=== PATIENT | male | born 1930 | race Caucasian/White ===

== ENCOUNTER 2017-10-03 00:54 | Inpatient (IN) | payer MEDICARE, OTHER ==
[2017-10-03] MEDS: SOD CHLORIDE 0.9% 500 ML IV (01:30)
[2017-10-03 01:32] LABS: ADD MAN DIFF? NO
[2017-10-03 01:36] LABS: WHITE BLOOD COUNT 7.7 10^3/ul (4.8-10.8)
[2017-10-03 01:36] LABS: BASOPHILS % 0.3 % (0.0-2.0); EOSINOPHILS % 0.3 % (0.0-7.0); HEMATOCRIT 33.7 % (42.0-52.0); HEMOGLOBIN 10.4 g/dl (14.0-18.0); LYMPHOCYTES # 1.4 10^3/ul (0.8-2.9); MEAN CORPUSCULAR HEMOGLOBIN 30.9 pg (29.0-33.0); MEAN CORPUSCULAR HGB CONC 30.9 g/dl (32.0-37.0); MEAN PLATELET VOLUME 10.8 fl (7.4-10.4); MONOCYTE # 0.6 10^3/ul (0.3-0.9); MONOCYTES % 8.1 % (0.0-11.0); NEUTROPHIL # 5.6 10^3/ul (1.6-7.5); NEUTROPHILS % 72.5 % (39.0-77.0); NUCLEATED RED BLOOD CELLS% 0.3 /100WBC (0.0-0.0); PLATELET COUNT 188 10^3/UL (140-415); RED BLOOD COUNT 3.37 10^6/ul (4.70-6.10); RED CELL DISTRIBUTION WIDTH 15.9 % (11.5-14.5)
[2017-10-03 01:56] LABS: INR 1.52; PARTIAL THROMBOPLASTIN TIME 29.1 Sec (25.0-35.0); PROTIME 18.6 Sec (11.9-14.9); PT RATIO 1.5
[2017-10-03 02:00] LABS: ALBUMIN 3.9 g/dl (3.3-4.9); ALBUMIN/GLOBULIN RATIO 1.18; ALKALINE PHOSPHATASE 151 IU/L (42-121); ANION GAP 26 (8-16); BILIRUBIN,INDIRECT 1.7 mg/dl (0-1.1); BILIRUBIN,TOTAL 1.7 mg/dl (0.2-1.3); BLOOD UREA NITROGEN 41 mg/dl (7-20); CALCIUM 9.5 mg/dl (8.4-10.2); CARBON DIOXIDE 16 mmol/L (21-31); CHLORIDE 108 mmol/L (97-110); CREATININE 2.18 mg/dl (0.61-1.24); GLUCOSE 81 mg/dl (70-220); LIPASE 120 U/L (23-300); POTASSIUM 5.6 mmol/L (3.5-5.1); SODIUM 144 mmol/L (135-144); TOTAL PROTEIN 7.2 g/dl (6.1-8.1)
[2017-10-03 02:11] LABS: TROPONIN-I 0.061 ng/ml (0.00-0.12)
[2017-10-03 02:16] LABS: ALANINE AMINOTRANSFERASE 1164 IU/L (13-69); ASPARTATE AMINO TRANSFERASE 1357 IU/L (15-46)
[2017-10-03 02:52] LABS: B-TYPE NATRIURETIC PEPTIDE 29700 PG/ML (0-450)
[2017-10-03] MEDS ORDERED: DEXTROSE 50% 50 ML SYRINGE IV (03:00)
[2017-10-03] MEDS: DEXTROSE 50% 50 ML SYRINGE IV (03:27)
[2017-10-03] MEDS: FUROSEMIDE 40 MG INJ IV (03:28)
[2017-10-03] MEDS: INSULIN REGULAR, HUMAN 100 UNIT/1 ML 3ML VIAL IVP (03:29)
[2017-10-03] MEDS ORDERED: NACL 0.9% 3 ML SYG IV (07:30)
[2017-10-03] MEDS ORDERED: ACETAMINOPHEN 325 MG TAB PO (07:30)
[2017-10-03] MEDS ORDERED: DOCUSATE SODIUM 100 MG CAP PO (07:30)
[2017-10-03] MEDS ORDERED: BISACODYL (EC) 5 MG TAB PO (07:30)
[2017-10-03] MEDS ORDERED: ONDANSETRON 4 MG INJ IV (07:30)
[2017-10-03] MEDS ORDERED: NITROGLYCERIN (SL) 0.4 MG TAB SL (07:30)
[2017-10-03] MEDS ORDERED: morphine 2 MG INJ (07:41)
[2017-10-03 08:21] LABS: ADD MAN DIFF? NO; HAAIG REFLEX REFLEX FILED
[2017-10-03 08:25] LABS: BASOPHILS % 0.1 % (0.0-2.0); EOSINOPHILS % 0.1 % (0.0-7.0); HEMATOCRIT 33.3 % (42.0-52.0); HEMOGLOBIN 10.6 g/dl (14.0-18.0); LYMPHOCYTES # 2.4 10^3/ul (0.8-2.9); LYMPHOCYTES % 16.3 % (15.0-51.0); MEAN CORPUSCULAR HEMOGLOBIN 31.5 pg (29.0-33.0); MEAN CORPUSCULAR HGB CONC 31.8 g/dl (32.0-37.0); MEAN CORPUSCULAR VOLUME 99.1 fl (82.0-101.0); MONOCYTE # 1.5 10^3/ul (0.3-0.9); MONOCYTES % 10.1 % (0.0-11.0); NEUTROPHIL # 10.6 10^3/ul (1.6-7.5); NEUTROPHILS % 72.8 % (39.0-77.0); PLATELET COUNT 182 10^3/UL (140-415); RED BLOOD COUNT 3.36 10^6/ul (4.70-6.10); RED CELL DISTRIBUTION WIDTH 15.9 % (11.5-14.5)
[2017-10-03 08:25] LABS: WHITE BLOOD COUNT 14.5 10^3/ul (4.8-10.8)
[2017-10-03 08:38] LABS: HEMOGLOBIN A1C 4.8 % (0-5.9)
[2017-10-03] MEDS: morphine 2 MG INJ IV ×2 (08:39→22:11)
[2017-10-03 08:44] LABS: CREATINE KINASE 89 IU/L (23-200)
[2017-10-03 08:48] LABS: ALBUMIN/GLOBULIN RATIO 1.25; ALKALINE PHOSPHATASE 152 IU/L (42-121); ANION GAP 24 (8-16); BILIRUBIN,INDIRECT 1.5 mg/dl (0-1.1); BILIRUBIN,TOTAL 1.5 mg/dl (0.2-1.3); BLOOD UREA NITROGEN 42 mg/dl (7-20); CALCIUM 9.3 mg/dl (8.4-10.2); CARBON DIOXIDE 17 mmol/L (21-31); CHLORIDE 111 mmol/L (97-110); CHOL/HDL RATIO 3.4 RATIO; CHOLESTEROL 121 mg/dl (100-200); CREATININE 2.41 mg/dl (0.61-1.24); GLUCOSE 84 mg/dl (70-220); HDL CHOLESTEROL 35 mg/dl (31-75); LDL CHOLESTEROL,CALCULATED 71 mg/dl; MAGNESIUM 2.2 mg/dl (1.7-2.5); POTASSIUM 4.6 mmol/L (3.5-5.1); SODIUM 147 mmol/L (135-144); TOTAL PROTEIN 7.2 g/dl (6.1-8.1); TRIGLYCERIDES 76 mg/dl (0-149)
[2017-10-03 08:56] LABS: ALANINE AMINOTRANSFERASE 2517 IU/L (13-69)
[2017-10-03 08:58] LABS: CK INDEX 2.6
[2017-10-03 08:59] LABS: CK-MB 2.28 ng/ml (0.0-2.4)
[2017-10-03] MEDS ORDERED: ALBUTEROL HFA 8 GM INHALER INH (09:00)
[2017-10-03] MEDS ORDERED: NON-FORMULARY/PATIENT OWN MED (Linaclotide (Linzess) 145 MCG) PO (09:00)
[2017-10-03] MEDS ORDERED: [UNRECOGNIZED DRUG - OTHER] (09:00)
[2017-10-03] MEDS: PREDNISOLONE ACET 1% 5 ML OPH BOTH EYES ×3 (09:00→21:42)
[2017-10-03 09:01] LABS: TROPONIN-I 0.156 ng/ml (0.00-0.12)
[2017-10-03] MEDS: CIPROFLOXACIN 0.3% 3.5 GM OPH OINT BOTH EYES ×3 (09:11→21:42)
[2017-10-03] MEDS: ALPRAZOLAM 0.5 MG TAB PO ×2 (09:15→21:41)
[2017-10-03] MEDS: DULOXETINE 30 MG CAP DR PO (09:15)
[2017-10-03] MEDS: ASPIRIN 81 MG TAB PO (09:15)
[2017-10-03] MEDS: FERROUS SULFATE (EC) 325 MG TAB PO (09:15)
[2017-10-03] MEDS: CARBIDOPA/LEVODOPA 50-200 (CR) TAB PO ×2 (09:16→21:41)
[2017-10-03] MEDS: METOPROLOL (XL) 25 MG TAB PO (09:16)
[2017-10-03 09:19] LABS: HEPATITIS B SURFACE ANTIGEN NEGATIVE (NEGATIVE)
[2017-10-03 09:36] LABS: HEPATITIS B SURFACE ANTIBODY NEGATIVE (NEGATIVE)
[2017-10-03 09:37] LABS: HEPATITIS B CORE ANTIBODY NEGATIVE (NEGATIVE); HEPATITIS C VIRAL ANTIBODY NEGATIVE (NEGATIVE)
[2017-10-03 09:55] LABS: ASPARTATE AMINO TRANSFERASE 3106 IU/L (15-46)
[2017-10-03 14:03] LABS: CREATINE KINASE 93 IU/L (23-200)
[2017-10-03 14:16] LABS: CK INDEX 2.6
[2017-10-03 14:20] LABS: CK-MB 2.45 ng/ml (0.0-2.4)
[2017-10-03 14:22] LABS: TROPONIN-I 0.194 ng/ml (0.00-0.12)
[2017-10-03 19:08] LABS: TROPONIN-I 0.198 ng/ml (0.00-0.12)
[2017-10-03] MEDS: INFLUENZA VIRUS VACCINE 0.5 ML SYG IM* (19:08)
[2017-10-03] MEDS ORDERED: PIPER-TAZO 2.25 GM (PMX) 50 ML IVPB (20:00)
[2017-10-03 20:10] LABS: ACETAMINOPHEN < 10.0 ug/ml (10.0-30.0)
[2017-10-04] MEDS: PIPER-TAZO 2.25 GM (PMX) 50 ML IVPB ×5 (00:22→23:25)
[2017-10-04] MEDS: LEVOTHYROXINE 25 MCG TAB PO (06:20)
[2017-10-04] MEDS: CARBIDOPA/LEVODOPA 50-200 (CR) TAB PO ×3 (08:04→21:00)
[2017-10-04] MEDS: DULOXETINE 30 MG CAP DR PO ×2 (08:04→09:00)
[2017-10-04] MEDS: ASPIRIN 81 MG TAB PO ×2 (08:04→09:00)
[2017-10-04 08:06] LABS: ADD MAN DIFF? NO
[2017-10-04] MEDS: ENOXAPARIN 60 MG/0.6 ML SYG SC (08:06)
[2017-10-04 08:09] LABS: BASOPHILS % 0.1 % (0.0-2.0); HEMATOCRIT 33.4 % (42.0-52.0); HEMOGLOBIN 10.6 g/dl (14.0-18.0); LYMPHOCYTES # 0.8 10^3/ul (0.8-2.9); LYMPHOCYTES % 3.7 % (15.0-51.0); MEAN CORPUSCULAR HEMOGLOBIN 31.1 pg (29.0-33.0); MEAN CORPUSCULAR HGB CONC 31.7 g/dl (32.0-37.0); MEAN CORPUSCULAR VOLUME 97.9 fl (82.0-101.0); MEAN PLATELET VOLUME 11.5 fl (7.4-10.4); MONOCYTE # 1.2 10^3/ul (0.3-0.9); MONOCYTES % 5.8 % (0.0-11.0); NEUTROPHIL # 18.3 10^3/ul (1.6-7.5); NEUTROPHILS % 89.7 % (39.0-77.0); NUCLEATED RED BLOOD CELLS # 0.1 10^3/ul (0.0-0.0); NUCLEATED RED BLOOD CELLS% 0.4 /100WBC (0.0-0.0); PLATELET COUNT 137 10^3/UL (140-415); RED BLOOD COUNT 3.41 10^6/ul (4.70-6.10); RED CELL DISTRIBUTION WIDTH 15.9 % (11.5-14.5)
[2017-10-04 08:09] LABS: WHITE BLOOD COUNT 20.4 10^3/ul (4.8-10.8)
[2017-10-04] MEDS: METOPROLOL (XL) 25 MG TAB PO ×2 (08:09→09:00)
[2017-10-04] MEDS: PREDNISOLONE ACET 1% 5 ML OPH BOTH EYES ×3 (08:10→21:02)
[2017-10-04] MEDS: CIPROFLOXACIN 0.3% 3.5 GM OPH OINT BOTH EYES ×3 (08:10→21:02)
[2017-10-04] MEDS: FUROSEMIDE 40 MG INJ IV ×2 (08:10→18:25)
[2017-10-04 08:22] LABS: ALBUMIN 3.7 g/dl (3.3-4.9); ALBUMIN/GLOBULIN RATIO 1.23; ALKALINE PHOSPHATASE 175 IU/L (42-121); ANION GAP 24 (8-16); BILIRUBIN,INDIRECT 1.5 mg/dl (0-1.1); BILIRUBIN,TOTAL 2.5 mg/dl (0.2-1.3); BLOOD UREA NITROGEN 57 mg/dl (7-20); CALCIUM 9.1 mg/dl (8.4-10.2); CARBON DIOXIDE 16 mmol/L (21-31); CHLORIDE 111 mmol/L (97-110); CREATINE KINASE 127 IU/L (23-200); CREATININE 3.04 mg/dl (0.61-1.24); GLUCOSE 77 mg/dl (70-220); POTASSIUM 5.1 mmol/L (3.5-5.1); SODIUM 146 mmol/L (135-144); TOTAL PROTEIN 6.7 g/dl (6.1-8.1)
[2017-10-04 08:34] LABS: CK INDEX 2.5
[2017-10-04 08:36] LABS: ALANINE AMINOTRANSFERASE 1819 IU/L (13-69)
[2017-10-04 08:37] LABS: CK-MB 3.12 ng/ml (0.0-2.4); TROPONIN-I 0.306 ng/ml (0.00-0.12)
[2017-10-04 08:57] LABS: CHOL/HDL RATIO 2.7 RATIO; HDL CHOLESTEROL 38 mg/dl (31-75); LDL CHOLESTEROL,CALCULATED 52 mg/dl; TRIGLYCERIDES 81 mg/dl (0-149)
[2017-10-04 08:57] LABS: CHOLESTEROL 106 mg/dl (100-200)
[2017-10-04 09:02] LABS: ASPARTATE AMINO TRANSFERASE 4388 IU/L (15-46)
[2017-10-04] MEDS: [UNRECOGNIZED DRUG - OTHER] XX ×2 (10:49→18:20)
[2017-10-04] MEDS: [UNRECOGNIZED DRUG - REMARK] XX ×2 (10:49→18:20)
[2017-10-04] MEDS: BROMFENAC SODIUM 1.7 ML OPH DROP BOTH EYES ×3 (11:00→21:04)
[2017-10-04 12:22] LABS: CREATINE KINASE 129 IU/L (23-200)
[2017-10-04 12:33] LABS: CK INDEX 2.5
[2017-10-04 12:37] LABS: CK-MB 3.24 ng/ml (0.0-2.4); TROPONIN-I 0.272 ng/ml (0.00-0.12)
[2017-10-04] MEDS ORDERED: VANCOMYCIN IV PER PHARMACY XX (14:00)
[2017-10-04] MEDS ORDERED: METOPROLOL 5 MG INJ (14:50)
[2017-10-04] MEDS: LORAZEPAM 2 MG INJ IV (15:45)
[2017-10-04] MEDS: VANCOMYCIN 1.5 GM in SOD CHLORIDE 0.9% 250 ML IVPB (17:00)
[2017-10-04 18:06] LABS: INR 2.56; PT RATIO 2.2
[2017-10-04 18:54] LABS: PROTIME 28.2 Sec (11.9-14.9)
[2017-10-04 22:39] LABS: ADD UMIC YES; UR ASCORBIC ACID NEGATIVE (NEGATIVE); UR BACTERIA FEW /HPF (NONE SEEN); UR BILIRUBIN (Dip) NEGATIVE (NEGATIVE); UR BLOOD (Dip) 1+ mg/dL (NEGATIVE); UR CLARITY SLIGHTLY CLOUDY (CLEAR); UR COLOR YELLOW (YELLOW); UR GLUCOSE (Dip) NEGATIVE (NEGATIVE); UR KETONES (Dip) NEGATIVE (NEGATIVE); UR LEUKOCYTE ESTERASE (Dip) NEGATIVE Leu/ul (NEGATIVE); UR NITRITE (Dip) NEGATIVE (NEGATIVE); UR RBC 2 /HPF (0-5); UR TOTAL PROTEIN (Dip) NEGATIVE (NEGATIVE); UR UROBILINOGEN (Dip) NEGATIVE (NEGATIVE); UR WBC 2 /HPF (0-5)
[2017-10-04 22:44] LABS: SODIUM,URINE RANDOM 99 mmol/L (30-90)
[2017-10-04 22:46] LABS: CREATININE,URINE RANDOM 48.37 mg/dl (20-370); PROTEIN/CREAT RATIO 0.53 RATIO
[2017-10-05] MEDS: [UNRECOGNIZED DRUG - REMARK] XX ×3 (03:00→19:00)
[2017-10-05] MEDS: [UNRECOGNIZED DRUG - OTHER] XX ×3 (03:00→19:00)
[2017-10-05] MEDS: PIPER-TAZO 2.25 GM (PMX) 50 ML IVPB ×5 (05:00→21:31)
[2017-10-05] MEDS: FUROSEMIDE 40 MG INJ IV (05:01)
[2017-10-05] MEDS: LEVOTHYROXINE 25 MCG TAB PO (06:15)
[2017-10-05] MEDS: PREDNISOLONE ACET 1% 5 ML OPH BOTH EYES ×3 (09:32→21:37)
[2017-10-05] MEDS: CIPROFLOXACIN 0.3% 3.5 GM OPH OINT BOTH EYES ×3 (09:32→21:37)
[2017-10-05] MEDS: BROMFENAC SODIUM 1.7 ML OPH DROP BOTH EYES ×3 (09:33→21:35)
[2017-10-05] MEDS: METOPROLOL (XL) 25 MG TAB PO ×2 (09:34→21:00)
[2017-10-05] MEDS: CARBIDOPA/LEVODOPA 50-200 (CR) TAB PO ×2 (09:34→21:37)
[2017-10-05] MEDS: ASPIRIN 81 MG TAB PO (09:35)
[2017-10-05] MEDS: DULOXETINE 30 MG CAP DR PO (09:35)
[2017-10-05 10:59] LABS: ADD MAN DIFF? NO
[2017-10-05 11:03] LABS: BASOPHILS % 0.2 % (0.0-2.0); EOSINOPHILS % 0.1 % (0.0-7.0); HEMATOCRIT 35.1 % (42.0-52.0); LYMPHOCYTES # 1.5 10^3/ul (0.8-2.9); LYMPHOCYTES % 9.2 % (15.0-51.0); MEAN CORPUSCULAR HEMOGLOBIN 31.2 pg (29.0-33.0); MEAN CORPUSCULAR HGB CONC 31.3 g/dl (32.0-37.0); MEAN CORPUSCULAR VOLUME 99.4 fl (82.0-101.0); MEAN PLATELET VOLUME 11.6 fl (7.4-10.4); MONOCYTE # 1.3 10^3/ul (0.3-0.9); MONOCYTES % 8.2 % (0.0-11.0); NEUTROPHIL # 12.9 10^3/ul (1.6-7.5); NEUTROPHILS % 81.3 % (39.0-77.0); NUCLEATED RED BLOOD CELLS # 0.3 10^3/ul (0.0-0.0); NUCLEATED RED BLOOD CELLS% 2.2 /100WBC (0.0-0.0); PLATELET COUNT 137 10^3/UL (140-415); RED BLOOD COUNT 3.53 10^6/ul (4.70-6.10); RED CELL DISTRIBUTION WIDTH 16.4 % (11.5-14.5)
[2017-10-05 11:03] LABS: WHITE BLOOD COUNT 15.8 10^3/ul (4.8-10.8)
[2017-10-05 11:25] LABS: ALBUMIN 3.9 g/dl (3.3-4.9); ALBUMIN/GLOBULIN RATIO 1.21; ALKALINE PHOSPHATASE 166 IU/L (42-121); ANION GAP 29 (8-16); BILIRUBIN,INDIRECT 1.8 mg/dl (0-1.1); BILIRUBIN,TOTAL 2.6 mg/dl (0.2-1.3); BLOOD UREA NITROGEN 69 mg/dl (7-20); CALCIUM 9.4 mg/dl (8.4-10.2); CARBON DIOXIDE 14 mmol/L (21-31); CHLORIDE 111 mmol/L (97-110); CREATININE 3.46 mg/dl (0.61-1.24); GLUCOSE 78 mg/dl (70-220); POTASSIUM 4.7 mmol/L (3.5-5.1); SODIUM 149 mmol/L (135-144); TOTAL PROTEIN 7.1 g/dl (6.1-8.1)
[2017-10-05 11:33] LABS: URIC ACID 17.6 mg/dl (3.1-7.9)
[2017-10-05 11:36] LABS: LACTIC ACID 7.5 mmol/L (0.5-2.0)
[2017-10-05 11:36] LABS: ALANINE AMINOTRANSFERASE 2667 IU/L (13-69)
[2017-10-05 11:53] LABS: ASPARTATE AMINO TRANSFERASE 2141 IU/L (15-46)
[2017-10-05 14:22] LABS: INR 2.89; PROTIME 31.1 Sec (11.9-14.9); PT RATIO 2.4
[2017-10-05] MEDS: SOD CHLORIDE 0.45% 1,000 ML IV (17:24)
[2017-10-05 20:11] LABS: LACTIC ACID 8.3 mmol/L (0.5-2.0)
[2017-10-05] MEDS: SOD CHLORIDE 0.9% 250 ML IV (21:28)
[2017-10-05] MEDS: AMIODARONE 200 MG TAB PO (21:34)
[2017-10-05] MEDS: ALPRAZOLAM 0.5 MG TAB PO (21:37)
[2017-10-06] MEDS: DIGOXIN 500 MCG INJ IV (00:18)
[2017-10-06] MEDS: HALOPERIDOL 5 MG INJ IM (00:19)
[2017-10-06] MEDS ORDERED: HALOPERIDOL 5 MG INJ IM (00:30)
[2017-10-06] MEDS: LEVALBUTEROL (NEB) 0.63 MG/3 ML AMP HHN ×2 (01:27→20:12)
[2017-10-06] MEDS: IPRATROPIUM (NEB) 0.5 MG/2.5 ML AMP HHN ×2 (01:27→20:12)
[2017-10-06] MEDS: SOD CHLORIDE 0.45% 1,000 ML IV ×3 (02:25→23:33)
[2017-10-06 02:37] LABS: LACTIC ACID 9.9 mmol/L (0.5-2.0)
[2017-10-06] MEDS: NA BICARBONATE 8.4% 50 ML SYG IV (03:28)
[2017-10-06] MEDS: AMIODARONE 200 MG TAB PO ×2 (06:00→14:00)
[2017-10-06] MEDS: PIPER-TAZO 2.25 GM (PMX) 50 ML IVPB ×3 (06:15→20:59)
[2017-10-06 06:38] LABS: ADD MAN DIFF? NO
[2017-10-06 06:43] LABS: WHITE BLOOD COUNT 13.5 10^3/ul (4.8-10.8)
[2017-10-06 06:43] LABS: BASOPHILS % 0.2 % (0.0-2.0); HEMATOCRIT 35.1 % (42.0-52.0); HEMOGLOBIN 11.3 g/dl (14.0-18.0); LYMPHOCYTES # 1.5 10^3/ul (0.8-2.9); MEAN CORPUSCULAR HEMOGLOBIN 31.7 pg (29.0-33.0); MEAN CORPUSCULAR HGB CONC 32.2 g/dl (32.0-37.0); MEAN CORPUSCULAR VOLUME 98.6 fl (82.0-101.0); MEAN PLATELET VOLUME 11.9 fl (7.4-10.4); MONOCYTE # 1.4 10^3/ul (0.3-0.9); MONOCYTES % 10.1 % (0.0-11.0); NEUTROPHIL # 10.5 10^3/ul (1.6-7.5); NUCLEATED RED BLOOD CELLS # 0.2 10^3/ul (0.0-0.0); NUCLEATED RED BLOOD CELLS% 1.4 /100WBC (0.0-0.0); PLATELET COUNT 137 10^3/UL (140-415); POSITIVE DIFF @See below; RED BLOOD COUNT 3.56 10^6/ul (4.70-6.10); RED CELL DISTRIBUTION WIDTH 17.2 % (11.5-14.5)
[2017-10-06 07:06] LABS: LACTIC ACID 7.6 mmol/L (0.5-2.0)
[2017-10-06 07:24] LABS: VANCOMYCIN,RANDOM 8.9 ug/ml
[2017-10-06 07:46] LABS: ALANINE AMINOTRANSFERASE 878 IU/L (13-69); ALBUMIN 3.8 g/dl (3.3-4.9); ALBUMIN/GLOBULIN RATIO 1.35; ALKALINE PHOSPHATASE 142 IU/L (42-121); ANION GAP 28 (8-16); BILIRUBIN,INDIRECT 2.1 mg/dl (0-1.1); BILIRUBIN,TOTAL 3.2 mg/dl (0.2-1.3); BLOOD UREA NITROGEN 81 mg/dl (7-20); CALCIUM 8.9 mg/dl (8.4-10.2); CARBON DIOXIDE 19 mmol/L (21-31); CHLORIDE 112 mmol/L (97-110); CREATININE 3.24 mg/dl (0.61-1.24); GLUCOSE 88 mg/dl (70-220); POTASSIUM 4.4 mmol/L (3.5-5.1); SODIUM 155 mmol/L (135-144); TOTAL PROTEIN 6.6 g/dl (6.1-8.1)
[2017-10-06 07:47] LABS: MAGNESIUM 2.1 mg/dl (1.7-2.5); PHOSPHORUS 5.7 mg/dl (2.5-4.9)
[2017-10-06] MEDS: [UNRECOGNIZED DRUG - REMARK] XX ×3 (09:29→19:00)
[2017-10-06] MEDS: [UNRECOGNIZED DRUG - OTHER] XX ×3 (09:30→19:00)
[2017-10-06] MEDS: CARBIDOPA/LEVODOPA 50-200 (CR) TAB PO ×2 (09:33→20:59)
[2017-10-06] MEDS: METOPROLOL (XL) 25 MG TAB PO ×2 (09:33→20:59)
[2017-10-06] MEDS: DULOXETINE 30 MG CAP DR PO (09:33)
[2017-10-06] MEDS: ASPIRIN 81 MG TAB PO (09:33)
[2017-10-06] MEDS: ALLOPURINOL 100 MG TAB PO ×2 (09:33→20:59)
[2017-10-06] MEDS: BROMFENAC SODIUM 1.7 ML OPH DROP BOTH EYES ×3 (09:34→20:57)
[2017-10-06] MEDS: CIPROFLOXACIN 0.3% 3.5 GM OPH OINT BOTH EYES ×3 (09:34→21:00)
[2017-10-06] MEDS: PREDNISOLONE ACET 1% 5 ML OPH BOTH EYES ×3 (09:34→20:56)
[2017-10-06] MEDS: LEVOTHYROXINE 25 MCG TAB PO (09:38)
[2017-10-06 09:55] LABS: LACTIC ACID 8.3 mmol/L (0.5-2.0)
[2017-10-06 09:58] LABS: ASPARTATE AMINO TRANSFERASE 1373 IU/L (15-46)
[2017-10-06] MEDS: VANCOMYCIN 750 MG in DEXTROSE 5% 150 ML IVPB (12:23)
[2017-10-06 13:38] LABS: ANA SCREEN NEGATIVE (NEGATIVE)
[2017-10-06 16:31] LABS: MITOCHONDRIAL TB NEGATIVE (NEGATIVE); SMOOTH MUSCLE AB SCREEN NEGATIVE (NEGATIVE)
[2017-10-06] MEDS: PHYTONADIONE 10 MG/ML INJ SC (17:36)
[2017-10-06] MEDS: LACTULOSE ENEMA 1,000 ML BTL PR ×2 (18:27→23:29)
[2017-10-06] MEDS: ALPRAZOLAM 0.5 MG TAB PO (21:30)
[2017-10-07] MEDS: LEVALBUTEROL (NEB) 0.63 MG/3 ML AMP HHN ×6 (02:22→20:59)
[2017-10-07] MEDS: IPRATROPIUM (NEB) 0.5 MG/2.5 ML AMP HHN ×6 (02:23→20:59)
[2017-10-07] MEDS: [UNRECOGNIZED DRUG - REMARK] XX ×3 (03:00→18:02)
[2017-10-07] MEDS: LACTULOSE ENEMA 1,000 ML BTL PR ×3 (05:53→18:11)
[2017-10-07] MEDS: PIPER-TAZO 2.25 GM (PMX) 50 ML IVPB ×3 (05:54→20:50)
[2017-10-07] MEDS: LEVOTHYROXINE 25 MCG TAB PO ×2 (07:00→08:54)
[2017-10-07] MEDS: [UNRECOGNIZED DRUG - OTHER] XX ×3 (07:51→18:02)
[2017-10-07 08:11] LABS: ADD MAN DIFF? NO
[2017-10-07 08:27] LABS: BASOPHILS % 0.2 % (0.0-2.0); HEMATOCRIT 32.6 % (42.0-52.0); HEMOGLOBIN 10.4 g/dl (14.0-18.0); LYMPHOCYTES # 0.8 10^3/ul (0.8-2.9); MEAN CORPUSCULAR HEMOGLOBIN 31.7 pg (29.0-33.0); MEAN CORPUSCULAR HGB CONC 31.9 g/dl (32.0-37.0); MEAN CORPUSCULAR VOLUME 99.4 fl (82.0-101.0); MEAN PLATELET VOLUME 11.4 fl (7.4-10.4); MONOCYTE # 0.9 10^3/ul (0.3-0.9); MONOCYTES % 9.3 % (0.0-11.0); NEUTROPHIL # 7.7 10^3/ul (1.6-7.5); NEUTROPHILS % 80.1 % (39.0-77.0); NUCLEATED RED BLOOD CELLS # 0.4 10^3/ul (0.0-0.0); NUCLEATED RED BLOOD CELLS% 3.6 /100WBC (0.0-0.0); PLATELET COUNT 122 10^3/UL (140-415); RED BLOOD COUNT 3.28 10^6/ul (4.70-6.10); RED CELL DISTRIBUTION WIDTH 18.3 % (11.5-14.5)
[2017-10-07 08:27] LABS: WHITE BLOOD COUNT 9.6 10^3/ul (4.8-10.8)
[2017-10-07 08:43] LABS: ALANINE AMINOTRANSFERASE 894 IU/L (13-69); ALBUMIN 3.8 g/dl (3.3-4.9); ALKALINE PHOSPHATASE 124 IU/L (42-121); ASPARTATE AMINO TRANSFERASE 741 IU/L (15-46); BILIRUBIN,INDIRECT 2.5 mg/dl (0-1.1); TOTAL PROTEIN 6.3 g/dl (6.1-8.1)
[2017-10-07 08:45] LABS: INR 2.87; PROTIME 30.9 Sec (11.9-14.9); PT RATIO 2.4
[2017-10-07 08:51] LABS: ALANINE AMINOTRANSFERASE 924 IU/L (13-69); ALBUMIN 3.8 g/dl (3.3-4.9); ALBUMIN/GLOBULIN RATIO 1.46; ALKALINE PHOSPHATASE 129 IU/L (42-121); ANION GAP 30 (8-16); ASPARTATE AMINO TRANSFERASE 740 IU/L (15-46); BILIRUBIN,INDIRECT 2.5 mg/dl (0-1.1); BILIRUBIN,TOTAL 3.9 mg/dl (0.2-1.3); BLOOD UREA NITROGEN 89 mg/dl (7-20); CALCIUM 8.8 mg/dl (8.4-10.2); CARBON DIOXIDE 17 mmol/L (21-31); CHLORIDE 116 mmol/L (97-110); CREATININE 3.38 mg/dl (0.61-1.24); GLUCOSE 103 mg/dl (70-220); POTASSIUM 4.2 mmol/L (3.5-5.1); SODIUM 159 mmol/L (135-144); TOTAL PROTEIN 6.4 g/dl (6.1-8.1)
[2017-10-07] MEDS: CARBIDOPA/LEVODOPA 50-200 (CR) TAB PO ×3 (08:52→20:49)
[2017-10-07] MEDS: DULOXETINE 30 MG CAP DR PO (08:52)
[2017-10-07] MEDS: ASPIRIN 81 MG TAB PO ×2 (08:52→09:00)
[2017-10-07] MEDS: ALLOPURINOL 100 MG TAB PO ×3 (08:52→20:50)
[2017-10-07] MEDS: PHYTONADIONE 10 MG/ML INJ SC (08:53)
[2017-10-07] MEDS: METOPROLOL (XL) 25 MG TAB PO ×3 (08:53→20:49)
[2017-10-07] MEDS: CIPROFLOXACIN 0.3% 3.5 GM OPH OINT BOTH EYES ×3 (08:54→20:47)
[2017-10-07] MEDS: PREDNISOLONE ACET 1% 5 ML OPH BOTH EYES ×3 (08:54→20:44)
[2017-10-07] MEDS: BROMFENAC SODIUM 1.7 ML OPH DROP BOTH EYES ×3 (08:54→20:45)
[2017-10-07 09:11] LABS: LACTIC ACID 7.1 mmol/L (0.5-2.0)
[2017-10-07 09:40] LABS: Allen Test ACCEPTAB; Arterial Base Excess -5.9 mmol/L (-3.0-3); Arterial Blood Gas Oxygen Sat 96.8 mmHG (95.0-100.0); Arterial COHb 0.2 % (0.0-3.0); Arterial Fraction of Oxyhgb 96.3 % (93.0-99.0); Arterial HCO3 16.9 mmol/L (22.0-26.0); Arterial MetHb 0.3 % (0.0-1.5); Arterial Total Hemglobin 11.8 g/dl (12.0-18.0); Arterial pCO2 25.7 mmhg (35-45); MODE NASAL CANNULA; Site Right Radial
[2017-10-07] MEDS: SODIUM BICARBONATE (IV ADD) 100 MEQ in DEXTROSE 5% 900 ML IV (10:54)
[2017-10-07] MEDS: METOPROLOL 5 MG INJ IV (13:03)
[2017-10-07 13:26] LABS: AMMONIA 33 umol/l (9-30)
[2017-10-07] MEDS ORDERED: hydrALAzine 20 MG INJ IV (14:00)
[2017-10-07] MEDS: CLONIDINE 0.1 MG/24 HR PATCH TRANSDERM (16:05)
[2017-10-07 21:05] LABS: ANION GAP 26 (8-16); BLOOD UREA NITROGEN 96 mg/dl (7-20); CALCIUM 8.6 mg/dl (8.4-10.2); CARBON DIOXIDE 23 mmol/L (21-31); CHLORIDE 114 mmol/L (97-110); CREATININE 3.14 mg/dl (0.61-1.24); GLUCOSE 154 mg/dl (70-220); POTASSIUM 4.1 mmol/L (3.5-5.1); SODIUM 159 mmol/L (135-144)
[2017-10-07 21:17] LABS: AADO2 Arterial 89.8 mmHg (7.0-24.0); Allen Test ACCEPTAB; Arterial Base Excess 0.9 mmol/L (-3.0-3); Arterial Blood Gas Oxygen Sat 95.7 mmHG (95.0-100.0); Arterial COHb 0.3 % (0.0-3.0); Arterial Fraction of Oxyhgb 95.2 % (93.0-99.0); Arterial MetHb 0.2 % (0.0-1.5); Arterial Total Hemglobin 11.6 g/dl (12.0-18.0); Arterial pCO2 33.3 mmhg (35-45); MODE NASAL CANNULA; Site Right Radial
[2017-10-08] MEDS: SODIUM BICARBONATE (IV ADD) 100 MEQ in DEXTROSE 5% 900 ML IV (00:17)
[2017-10-08] MEDS: VANCOMYCIN 750 MG in DEXTROSE 5% 150 ML IVPB (00:37)
[2017-10-08] MEDS: LACTULOSE ENEMA 1,000 ML BTL PR ×3 (00:44→12:00)
[2017-10-08] MEDS: LEVALBUTEROL (NEB) 0.63 MG/3 ML AMP HHN ×6 (01:39→21:08)
[2017-10-08] MEDS: IPRATROPIUM (NEB) 0.5 MG/2.5 ML AMP HHN ×6 (01:39→21:08)
[2017-10-08 01:41] LABS: AADO2 Arterial 298.9 mmHg (7.0-24.0); Allen Test ACCEPTAB; Arterial Base Excess 3.2 mmol/L (-3.0-3); Arterial Blood Gas Oxygen Sat 99.6 mmHG (95.0-100.0); Arterial COHb 0 % (0.0-3.0); Arterial Fraction of Oxyhgb 99.3 % (93.0-99.0); Arterial HCO3 25.7 mmol/L (22.0-26.0); Arterial MetHb 0.3 % (0.0-1.5); Arterial Total Hemglobin 11.4 g/dl (12.0-18.0); Arterial pCO2 32.3 mmhg (35-45); MODE MASK - NRB; Site Right Radial
[2017-10-08] MEDS: [UNRECOGNIZED DRUG - OTHER] XX ×2 (03:00→11:00)
[2017-10-08] MEDS: [UNRECOGNIZED DRUG - REMARK] XX (03:00)
[2017-10-08] MEDS: DEXTROSE 5% 1,000 ML IV ×3 (04:24→10:46)
[2017-10-08] MEDS: PIPER-TAZO 2.25 GM (PMX) 50 ML IVPB ×3 (04:25→21:50)
[2017-10-08] MEDS: LEVOTHYROXINE 25 MCG TAB PO (07:00)
[2017-10-08 08:27] LABS: AADO2 Arterial 179.3 mmHg (7.0-24.0); Allen Test ACCEPTAB; Arterial Base Excess 1.2 mmol/L (-3.0-3); Arterial Blood Gas Oxygen Sat 98.6 mmHG (95.0-100.0); Arterial COHb 0.6 % (0.0-3.0); Arterial Fraction of Oxyhgb 97.7 % (93.0-99.0); Arterial HCO3 24.2 mmol/L (22.0-26.0); Arterial MetHb 0.3 % (0.0-1.5); Arterial Total Hemglobin 11.6 g/dl (12.0-18.0); Arterial pCO2 32.9 mmhg (35-45); Blood Gas IEPAP 15/5; MODE MASK - BIPAP; Site Right Radial
[2017-10-08] MEDS: PHYTONADIONE 10 MG/ML INJ SC (08:36)
[2017-10-08] MEDS: ASPIRIN 81 MG TAB PO (09:00)
[2017-10-08] MEDS: CIPROFLOXACIN 0.3% 3.5 GM OPH OINT BOTH EYES ×3 (09:00→21:00)
[2017-10-08] MEDS: DULOXETINE 30 MG CAP DR PO (09:00)
[2017-10-08] MEDS: PREDNISOLONE ACET 1% 5 ML OPH BOTH EYES ×3 (09:00→21:50)
[2017-10-08] MEDS: BROMFENAC SODIUM 1.7 ML OPH DROP BOTH EYES ×3 (09:00→21:00)
[2017-10-08] MEDS: CARBIDOPA/LEVODOPA 50-200 (CR) TAB PO ×2 (09:00→21:49)
[2017-10-08] MEDS: ALLOPURINOL 100 MG TAB PO ×2 (09:00→21:48)
[2017-10-08 09:48] LABS: ADD MAN DIFF? NO
[2017-10-08 09:53] LABS: ABNORMAL IP MESSAGE 1; BASOPHILS % 0.2 % (0.0-2.0); EOSINOPHILS % 0.3 % (0.0-7.0); HEMATOCRIT 33.7 % (42.0-52.0); HEMOGLOBIN 10.6 g/dl (14.0-18.0); LYMPHOCYTES # 0.6 10^3/ul (0.8-2.9); LYMPHOCYTES % 5.4 % (15.0-51.0); MEAN CORPUSCULAR HEMOGLOBIN 31.8 pg (29.0-33.0); MEAN CORPUSCULAR HGB CONC 31.5 g/dl (32.0-37.0); MEAN CORPUSCULAR VOLUME 101.2 fl (82.0-101.0); MEAN PLATELET VOLUME 11.1 fl (7.4-10.4); MONOCYTE # 0.8 10^3/ul (0.3-0.9); MONOCYTES % 7.4 % (0.0-11.0); NEUTROPHILS % 85.4 % (39.0-77.0); NUCLEATED RED BLOOD CELLS # 0.2 10^3/ul (0.0-0.0); NUCLEATED RED BLOOD CELLS% 2.2 /100WBC (0.0-0.0); PLATELET COUNT 105 10^3/UL (140-415); POSITIVE DIFF @See below; RED BLOOD COUNT 3.33 10^6/ul (4.70-6.10); RED CELL DISTRIBUTION WIDTH 18.9 % (11.5-14.5)
[2017-10-08 09:53] LABS: WHITE BLOOD COUNT 10.6 10^3/ul (4.8-10.8)
[2017-10-08 10:10] LABS: ALBUMIN 3.4 g/dl (3.3-4.9); ALBUMIN/GLOBULIN RATIO 1.21; ALKALINE PHOSPHATASE 118 IU/L (42-121); ANION GAP 23 (8-16); ASPARTATE AMINO TRANSFERASE 543 IU/L (15-46); BILIRUBIN,INDIRECT 2.4 mg/dl (0-1.1); BILIRUBIN,TOTAL 3.3 mg/dl (0.2-1.3); BLOOD UREA NITROGEN 93 mg/dl (7-20); CALCIUM 8.3 mg/dl (8.4-10.2); CARBON DIOXIDE 28 mmol/L (21-31); CHLORIDE 117 mmol/L (97-110); CREATININE 3.12 mg/dl (0.61-1.24); GLUCOSE 126 mg/dl (70-220); POTASSIUM 3.3 mmol/L (3.5-5.1); TOTAL PROTEIN 6.2 g/dl (6.1-8.1)
[2017-10-08 10:13] LABS: LACTIC ACID 2.9 mmol/L (0.5-2.0)
[2017-10-08 10:28] LABS: ALANINE AMINOTRANSFERASE 1153 IU/L (13-69); SODIUM 165 mmol/L (135-144)
[2017-10-08 13:02] LABS: CREATINE KINASE 578 IU/L (23-200)
[2017-10-08 13:13] LABS: CK INDEX 0.2
[2017-10-08 13:15] LABS: CK-MB 1.35 ng/ml (0.0-2.4)
[2017-10-08] MEDS: LACTULOSE 30ML CUP NGT ×2 (14:00→18:25)
[2017-10-08] MEDS ORDERED: POTASSIUM CHLORIDE 50 ML IVPB (16:30)
[2017-10-08] MEDS: POTASSIUM CHLORIDE 50 ML IVPB ×2 (18:30→21:57)
[2017-10-08 18:39] LABS: CREATINE KINASE 489 IU/L (23-200)
[2017-10-08 18:52] LABS: CK INDEX 0.4; CK-MB 1.94 ng/ml (0.0-2.4)
[2017-10-08 19:00] LABS: ANION GAP 20 (8-16); BLOOD UREA NITROGEN 92 mg/dl (7-20); CALCIUM 8.6 mg/dl (8.4-10.2); CARBON DIOXIDE 30 mmol/L (21-31); CHLORIDE 117 mmol/L (97-110); CREATININE 2.55 mg/dl (0.61-1.24); GLUCOSE 159 mg/dl (70-220); POTASSIUM 3.3 mmol/L (3.5-5.1)
[2017-10-08 19:08] LABS: SODIUM 164 mmol/L (135-144)
[2017-10-08] MEDS: ALPRAZOLAM 0.5 MG TAB PO (21:50)
[2017-10-08] MEDS: morphine 2 MG INJ IV (23:22)
[2017-10-09] MEDS: LORAZEPAM 2 MG INJ IV
[2017-10-09] MEDS: morphine 2 MG INJ IV
[2017-10-09 00:21] LABS: AADO2 Arterial 101.1 mmHg (7.0-24.0); Allen Test ACCEPTAB; Arterial Base Excess 4.8 mmol/L (-3.0-3); Arterial Blood Gas Oxygen Sat 98.3 mmHG (95.0-100.0); Arterial COHb 0.1 % (0.0-3.0); Arterial Fraction of Oxyhgb 97.8 % (93.0-99.0); Arterial HCO3 29.2 mmol/L (22.0-26.0); Arterial MetHb 0.4 % (0.0-1.5); Arterial Total Hemglobin 11.6 g/dl (12.0-18.0); Arterial pCO2 42.6 mmhg (35-45); Blood Gas IEPAP 15/5; Blood Gas PS 10; MODE MASK - BIPAP; Site Right Radial
[2017-10-09] MEDS: IPRATROPIUM (NEB) 0.5 MG/2.5 ML AMP HHN ×5 (01:18→16:55)
[2017-10-09] MEDS: LEVALBUTEROL (NEB) 0.63 MG/3 ML AMP HHN ×5 (01:18→16:55)
[2017-10-09] MEDS: DEXTROSE 5% 1,000 ML IV ×2 (01:57→12:26)
[2017-10-09] MEDS: LACTULOSE 30ML CUP NGT ×4 (01:57→17:37)
[2017-10-09 05:32] LABS: ADD MAN DIFF? NO
[2017-10-09 05:38] LABS: ABNORMAL IP MESSAGE 1; BASOPHILS % 0.1 % (0.0-2.0); EOSINOPHILS # 0.1 10^3/ul (0.0-0.5); EOSINOPHILS % 0.9 % (0.0-7.0); HEMATOCRIT 34.3 % (42.0-52.0); HEMOGLOBIN 10.7 g/dl (14.0-18.0); LYMPHOCYTES % 6.5 % (15.0-51.0); MEAN CORPUSCULAR HEMOGLOBIN 31.8 pg (29.0-33.0); MEAN CORPUSCULAR HGB CONC 31.2 g/dl (32.0-37.0); MEAN CORPUSCULAR VOLUME 102.1 fl (82.0-101.0); MEAN PLATELET VOLUME 11.5 fl (7.4-10.4); MONOCYTE # 1.1 10^3/ul (0.3-0.9); MONOCYTES % 7.6 % (0.0-11.0); NEUTROPHIL # 12.5 10^3/ul (1.6-7.5); NEUTROPHILS % 84.3 % (39.0-77.0); NUCLEATED RED BLOOD CELLS # 0.1 10^3/ul (0.0-0.0); NUCLEATED RED BLOOD CELLS% 0.3 /100WBC (0.0-0.0); PLATELET COUNT 93 10^3/UL (140-415); POSITIVE DIFF @See below; RED BLOOD COUNT 3.36 10^6/ul (4.70-6.10); RED CELL DISTRIBUTION WIDTH 18.7 % (11.5-14.5)
[2017-10-09 05:38] LABS: WHITE BLOOD COUNT 14.8 10^3/ul (4.8-10.8)
[2017-10-09 05:57] LABS: ALANINE AMINOTRANSFERASE 423 IU/L (13-69); ALBUMIN 3.2 g/dl (3.3-4.9); ALBUMIN/GLOBULIN RATIO 1.18; ALKALINE PHOSPHATASE 102 IU/L (42-121); ANION GAP 18 (8-16); ASPARTATE AMINO TRANSFERASE 297 IU/L (15-46); BILIRUBIN,INDIRECT 2.4 mg/dl (0-1.1); BILIRUBIN,TOTAL 3.8 mg/dl (0.2-1.3); BLOOD UREA NITROGEN 77 mg/dl (7-20); CALCIUM 8.7 mg/dl (8.4-10.2); CARBON DIOXIDE 32 mmol/L (21-31); CHLORIDE 120 mmol/L (97-110); CREATININE 2.32 mg/dl (0.61-1.24); GLUCOSE 149 mg/dl (70-220); POTASSIUM 3.2 mmol/L (3.5-5.1); TOTAL PROTEIN 5.9 g/dl (6.1-8.1)
[2017-10-09 05:57] LABS: LACTIC ACID 1.8 mmol/L (0.5-2.0)
[2017-10-09 05:59] LABS: SODIUM 167 mmol/L (135-144)
[2017-10-09 06:01] LABS: PHOSPHORUS 2.9 mg/dl (2.5-4.9)
[2017-10-09 06:01] LABS: MAGNESIUM 2.6 mg/dl (1.7-2.5)
[2017-10-09 06:12] LABS: CREATINE KINASE 392 IU/L (23-200)
[2017-10-09] MEDS: PIPER-TAZO 2.25 GM (PMX) 50 ML IVPB ×2 (06:20→13:26)
[2017-10-09 06:24] LABS: CK INDEX 0.4
[2017-10-09 06:29] LABS: CK-MB 1.72 ng/ml (0.0-2.4)
[2017-10-09] MEDS: LEVOTHYROXINE 25 MCG TAB PO (07:49)
[2017-10-09] MEDS: POTASSIUM CHLORIDE 30 MEQ in DEXTROSE 5% 250 ML IV (07:49)
[2017-10-09] MEDS ORDERED: POTASSIUM CHLORIDE 50 ML IVPB (08:00)
[2017-10-09] MEDS: CARBIDOPA/LEVODOPA 50-200 (CR) TAB PO (08:22)
[2017-10-09] MEDS: DULOXETINE 30 MG CAP DR PO (08:22)
[2017-10-09] MEDS: PREDNISOLONE ACET 1% 5 ML OPH BOTH EYES ×2 (08:23→12:25)
[2017-10-09] MEDS: CIPROFLOXACIN 0.3% 3.5 GM OPH OINT BOTH EYES ×2 (08:23→12:25)
[2017-10-09] MEDS: BROMFENAC SODIUM 1.7 ML OPH DROP BOTH EYES ×2 (08:24→12:25)
[2017-10-09] MEDS: ALLOPURINOL 100 MG TAB PO (08:26)
[2017-10-09 12:25] LABS: VANCOMYCIN,TROUGH 9.8 ug/ml (10.0-20.0)
[2017-10-09 12:53] LABS: INR 2.42; PT RATIO 2.1
[2017-10-09] MEDS: VANCOMYCIN 1 GM 250 ML IVPB (13:26)
[2017-10-09] MEDS: morphine (DRIP) 100 MG/100 ML 100 ML IV (17:44)
[2017-10-10] MEDS: morphine (DRIP) 100 MG/100 ML 100 ML IV (08:13)
[2017-10-10] MEDS: ATROPINE 1% 5 ML OPH SL (14:23)
[2017-10-10] MEDS ORDERED: LORAZEPAM 2 MG INJ IV (15:30)
== END 2017-10-10 19:35 | disposition expired | DRG 871 ==
LOC: ICU 10-08 07:15 → MS1 10-10 07:55 → E/R 00:54 → TEL 02:54
DX: A41.9 Sepsis, unspecified organism (principal); I21.A1 Myocardial infarction type 2; J96.01 Acute respiratory failure with hypoxia; J69.0 Pneumonitis due to inhalation of food and vomit; G93.41 Metabolic encephalopathy; N17.9 Acute kidney failure, unspecified; I50.43 Acute on chronic combined systolic (congestive) and diastolic (congestive) heart failure; E87.0 Hyperosmolality and hypernatremia; D68.9 Coagulation defect, unspecified; I38 Endocarditis, valve unspecified; I13.0 Hypertensive heart and chronic kidney disease with heart failure and stage 1 through stage 4 chronic kidney disease, or unspecified chronic kidney disease; B15.9 Hepatitis A without hepatic coma; R65.20 Severe sepsis without septic shock; D69.59 Other secondary thrombocytopenia; I48.2 Chronic atrial fibrillation; N18.3 Chronic kidney disease, stage 3 (moderate); K76.1 Chronic passive congestion of liver; K72.90 Hepatic failure, unspecified without coma; E03.9 Hypothyroidism, unspecified; F32.9 Major depressive disorder, single episode, unspecified; I25.10 Atherosclerotic heart disease of native coronary artery without angina pectoris; I46.8 Cardiac arrest due to other underlying condition; Z66 Do not resuscitate; Z79.82 Long term (current) use of aspirin
CPT/HCPCS: 36415; 36600; 71045; 74176; 74181; 76705; 80048; 80053; 80061; 80076; 80202; 80306; 81001; 81003; 82140; 82550; 82553; 82570; 82803; 82962; 83036; 83605; 83690; 83735; 83880; 84100; 84300; 84443; 84484; 84560; 85025; 85610; 85730; 86038; 86255; 86704; 86706; 86708; 86709; 86803; 86850; 86900; 86901; 87040; 87086; 87340; 89190; 90686; 93005; 93306; 94640; 94660; 94664; 96374; 96375; 99291-25